=== PATIENT | female | born 2000 | race Two or more races ===

== ENCOUNTER 2023-03-21 06:46 | Day surgery (SDC) | payer OTHER ==
[2023-03-21] MEDS ORDERED: MONDOXYNE NL100 MG PO (14:39)
[2023-03-21] MEDS ORDERED: IBU600 MG PO (14:39)
== END 2023-03-21 21:20 | disposition home or self-care (01) ==
LOC: EDBD → CIR.AMB 06:46
PROVIDERS: ATTEND Obstetrics & Gynecology
DX: O02.1 Missed abortion (principal); Z20.822 Contact with and (suspected) exposure to COVID-19

== ENCOUNTER 2024-03-07 22:33 | Inpatient (IN) | payer OTHER ==
[~2024-03-07] VITALS: Ht 154.9 cm; Wt 69.4 kg
[~2024-03-07 22:33] MED LIST: IBU600 MG PO; MONDOXYNE NL100 MG PO
[2024-03-07] MEDS ORDERED: RINGERS SOLUTION,LACTATED 1,000 ML IV SCH (22:45)
[2024-03-07] MEDS ORDERED: PRENATAL TABLE1 EAC1 PO (22:51)
[2024-03-07 23:19] LABS: URINE APPEARANCE Cloudy; URINE BILIRRUBIN Negative (NEGATIVE); URINE BLOOD Large; URINE COLOR Yellow; URINE GLUCOSE Negative (NEGATIVE); URINE KETONE Negative (NEGATIVE); URINE LEUKOCYTE Trace; URINE NITRATE Positive
[2024-03-07 23:23] LABS: URINE BACTERIA 3337.6 uL (0.0-1933); URINE EPITHELIAL CELLS 18.7 uL (0.0-38.8); URINE RBC 1396.9 uL (0.0-20.8); URINE WBC 152.1 uL (0.0-23.2)
[2024-03-07 23:44] LABS: HEMOGLOBIN 10.9 g/dL (12.0-15.00); MEAN CELL VOLUME 92.5 fL (80.00-100.00); MEAN CORPUSCULAR HEMOGLOBIN 32.7 pg (27.00-32.0); MEAN CORPUSCULAR HGB CONC 35.3 g/dl (32.0-36.0); PLATELET COUNT 168 K/uL (150-450); RED BLOOD COUNT 3.35 M/uL (4.00-6.00); RED CELL DISTRIBUTION WIDTH 12.1 % (11.5-14.5)
[2024-03-07 23:45] LABS: URINE CAST 0.91 uL (0.0-1.40); URINE PROTEIN 300 (NEGATIVE)
[2024-03-07 23:58] LABS: BILIRUBIN TOTAL 0.55 mg/dL (0.3-1.2); CALCIUM 9.2 mg/dL (8.5-10.1); CREATININE SERUM 0.49 mg/dL (0.55-1.02); GFR 155.16; GLOBULINA 3.6 G/DL (2.4-3.5); POTASSIUM 3.63 mEq/L (3.5-5.1); TOTAL PROTEIN 6.6 gm/dL (6.4-8.2)
[2024-03-08] MEDS ORDERED: CEFTRIAXONE SODIUM 2,000 MG VIAL IV SCH ×2 (01:30→21:00)
[2024-03-08] MEDS ORDERED: ACETAMINOPHEN 500 MG GEL..CAP PO PRN (01:30)
[2024-03-08] MEDS ORDERED: CEFTRIAXONE SODIUM 1,000 MG in DEXTROSE 5 % IN WATER 100 ML IV SCH (11:56)
[2024-03-08] MEDS ORDERED: CEFTRIAXONE SODIUM 1,000 MG VIAL IV SCH (13:00)
[2024-03-12] MEDS ORDERED: CEFUROXIME500 MG PO (09:05)
== END 2024-03-12 11:26 | disposition home or self-care (01) | DRG 833 ==
LOC: OBS/DEL 22:33 → OB/GYN 03-08 11:02 → LDR 03-08 11:02 → OB/GYN 03-08 15:01
PROVIDERS: ADMIT Obstetrics & Gynecology; ATTEND Obstetrics & Gynecology
PROC: 4A1HXCZ Monitoring of Products of Conception, Cardiac Rate, External Approach (ICD-10-PCS; principal; 2024-03-08)
DX: O23.03 Infections of kidney in pregnancy, third trimester (principal); Z3A.30 30 weeks gestation of pregnancy; Z20.822 Contact with and (suspected) exposure to COVID-19

== ENCOUNTER 2024-03-25 09:21 | Outpatient (CLI) | payer OTHER ==
[~2024-03-25 09:21] MED LIST changes: +CEFUROXIME500 MG PO; +PRENATAL TABLE1 EAC1 PO
== END 2024-03-25 09:22 | disposition home or self-care (01) ==
LOC: PRENATAL 09:21
PROVIDERS: ATTEND Obstetrics & Gynecology Maternal & Fetal Medicine
DX: O26.843 Uterine size-date discrepancy, third trimester (principal); O36.8130 Decreased fetal movements, third trimester, not applicable or unspecified; Z3A.32 32 weeks gestation of pregnancy

== ENCOUNTER 2024-04-15 14:04 | Outpatient (CLI) | payer OTHER | END 2024-04-15 14:05 | disposition home or self-care (01) | LOC: PRENATAL 14:04 | PROVIDERS: ATTEND Obstetrics & Gynecology Maternal & Fetal Medicine | DX: O26.849 Uterine size-date discrepancy, unspecified trimester (principal); O36.8199 Decreased fetal movements, unspecified trimester, other fetus; Z3A.35 35 weeks gestation of pregnancy ==

== ENCOUNTER 2024-04-20 12:27 | Inpatient (IN) | payer OTHER ==
[~2024-04-20] VITALS: Ht 154.9 cm; Wt 2.3 kg
[2024-04-20 11:34] VITALS: BP 102/60
[2024-04-20 12:37] VITALS: BP 106/70
[2024-04-20] MEDS ORDERED: BETAMETHASONE ACETATE,SOD PHOS 30 MG/5 ML ML ONE (13:12)
[2024-04-20] MEDS ORDERED: BETAMETHASONE ACETATE,SOD PHOS 30 MG/5 ML ML IM SCH (13:38)
[2024-04-20 13:42] LABS: PH,URINE 6.5 (5.0-8.0); URINE APPEARANCE Clear; URINE BACTERIA 2569.1 uL (0.0-1933); URINE BILIRRUBIN Negative (NEGATIVE); URINE BLOOD Trace; URINE COLOR Yellow; URINE EPITHELIAL CELLS 45.2 uL (0.0-38.8); URINE GLUCOSE Negative (NEGATIVE); URINE KETONE Negative (NEGATIVE); URINE LEUKOCYTE Small; URINE NITRATE Negative; URINE PROTEIN Trace (NEGATIVE); URINE WBC 75.5 uL (0.0-23.2)
[2024-04-20 13:45] LABS: HEMATOCRIT 34.8 % (36.0-45.00); HEMOGLOBIN 11.8 g/dL (12.0-15.00); MEAN CELL VOLUME 91.2 fL (80.00-100.00); MEAN CORPUSCULAR HEMOGLOBIN 30.8 pg (27.00-32.0); MEAN CORPUSCULAR HGB CONC 33.8 g/dl (32.0-36.0); PLATELET COUNT 172 K/uL (150-450); RED BLOOD COUNT 3.82 M/uL (4.00-6.00); RED CELL DISTRIBUTION WIDTH 13.2 % (11.5-14.5)
[2024-04-20] MEDS ORDERED: RINGERS SOLUTION,LACTATED 1,000 ML IV SCH (13:45)
[2024-04-20 14:00] LABS: URINE CAST 0.76 uL (0.0-1.40)
[2024-04-20 14:05] LABS: INR 0.94; PARTIAL THROMBOPLASTIN TIME 29.5 SECONDS (22.0-34.0); PROTHROMBIN TIME 10.3 SECONDS (9.0-11.5)
[2024-04-20 14:50] LABS: ALBUMIN 2.9 gm/dL (3.4-5.0); BILIRUBIN TOTAL 0.78 mg/dL (0.3-1.2); CALCIUM 9.2 mg/dL (8.5-10.1); CREATININE SERUM 0.43 mg/dL (0.55-1.02); GFR 180.4; GLOBULINA 3.9 G/DL (2.4-3.5); POTASSIUM 3.92 mEq/L (3.5-5.1); TOTAL PROTEIN 6.8 gm/dL (6.4-8.2)
[2024-04-20 16:07] VITALS: BP 116/73
[2024-04-20 19:40] VITALS: BP 121/69
[2024-04-20 23:34] VITALS: BP 102/60
[2024-04-21 03:08] VITALS: BP 122/63
[2024-04-21 06:32] VITALS: BP 101/59; O2SAT 100
[2024-04-21 13:00] VITALS: BP 119/76
[2024-04-21 19:14] VITALS: BP 113/68
[2024-04-22] VITALS: BP 124/69
[2024-04-22 08:00] VITALS: BP 121/68
[2024-04-22 18:01] VITALS: BP 109/70
[2024-04-22 23:22] VITALS: BP 121/72
[2024-04-23 03:25] VITALS: BP 112/55
[2024-04-23] MEDS ORDERED: MISOPROSTOL 25 MCG TABLET ONE (06:32)
[2024-04-23] MEDS ORDERED: MISOPROSTOL 25 MCG TABLET VAG ONE (06:45)
[2024-04-23 07:26] VITALS: BP 108/55
[2024-04-23] MEDS ORDERED: OXYTOCIN 500 ML IV SCH (10:00)
[2024-04-23 11:22] VITALS: BP 123/67
[2024-04-23 14:33] VITALS: BP 130/82
[2024-04-23] MEDS ORDERED: MORPHINE SULFATE 4 MG/ML CARTRIDGE IV NR (14:51)
[2024-04-23 15:33] VITALS: BP 121/72
[2024-04-23] MEDS ORDERED: CEFAZOLIN SODIUM 1,000 MG VIAL ONE (19:02)
[2024-04-23] MEDS ORDERED: CEFAZOLIN SODIUM 1,000 MG VIAL IV SCH (19:15)
[2024-04-23] MEDS ORDERED: MEPERIDINE HCL/PF 50 MG/ML VIAL IM PRN (21:45)
[2024-04-23] MEDS ORDERED: OXYTOCIN 1,000 ML IV SCH (21:45)
[2024-04-23] MEDS ORDERED: ERYTHROMYCIN BASE OPHT 1GM EACH TUBE OP ONE (22:00)
[2024-04-23] MEDS ORDERED: PROMETHAZINE HCL 50 MG/ML AMPUL IM PRN (22:00)
[2024-04-23] MEDS ORDERED: OXYTOCIN 20 UNITS/1000ML 0.45% PIGGYBAG IV ONE (22:00)
[2024-04-24] MEDS ORDERED: MORPHINE SULFATE 4 MG/ML VIAL IV ONE (00:05)
[2024-04-24] MEDS ORDERED: MEPERIDINE HCL 50 MG/ML AMPUL IV ONE (01:25)
[2024-04-24 04:00] VITALS: BP 123/78
[2024-04-24 05:36] LABS: HEMATOCRIT 31.9 % (36.0-45.00); MEAN CELL VOLUME 89.7 fL (80.00-100.00); MEAN CORPUSCULAR HEMOGLOBIN 30.8 pg (27.00-32.0); MEAN CORPUSCULAR HGB CONC 34.4 g/dl (32.0-36.0); PLATELET COUNT 162 K/uL (150-450); RED BLOOD COUNT 3.56 M/uL (4.00-6.00); RED CELL DISTRIBUTION WIDTH 13.1 % (11.5-14.5)
[2024-04-24] MEDS ORDERED: ACETAMINOPHEN WITH CODEINE 1 UDTAB TABLET PO PRN (08:45)
[2024-04-24 08:47] VITALS: BP 114/80
[2024-04-24] MEDS ORDERED: SIMETHICONE 125 MG CAPSULE PO SCH (09:00)
[2024-04-24] MEDS ORDERED: NAPROXEN 500 MG TABLET PO SCH (09:00)
[2024-04-24 13:00] VITALS: BP 119/70
[2024-04-24 17:25] VITALS: BP 105/72
[2024-04-24 23:50] VITALS: BP 109/66
[2024-04-25 09:13] VITALS: BP 115/73
[2024-04-25 16:00] VITALS: BP 113/77
[2024-04-25 20:00] VITALS: BP 112/74
[2024-04-26 00:17] VITALS: BP 100/64
[2024-04-26 04:30] VITALS: BP 104/70
[2024-04-26 08:00] VITALS: BP 111/79
[2024-04-26] MEDS ORDERED: NAPR500T14 PO (11:41)
[2024-04-26] MEDS ORDERED: Tylenol #3 PO (11:41)
== END 2024-04-26 12:01 | disposition home or self-care (01) | DRG 786 ==
LOC: OB/GYN 12:27 → LDR 12:27 → OB/GYN 04-21 08:51
PROVIDERS: Obstetrics & Gynecology; ADMIT Obstetrics & Gynecology; ATTEND Obstetrics & Gynecology
PROC: 4A1HXCZ Monitoring of Products of Conception, Cardiac Rate, External Approach (ICD-10-PCS; 2024-04-20)
PROC: BY4FZZZ Ultrasonography of Third Trimester, Single Fetus (ICD-10-PCS; 2024-04-21)
PROC: 3E033VJ Introduction of Other Hormone into Peripheral Vein, Percutaneous Approach (ICD-10-PCS; 2024-04-23)
PROC: 3E0P7VZ Introduction of Hormone into Female Reproductive, Via Natural or Artificial Opening (ICD-10-PCS; 2024-04-23)
PROC: 10D00Z1 Extraction of Products of Conception, Low, Open Approach (ICD-10-PCS; principal; 2024-04-23 20:15)
DX: O36.8130 Decreased fetal movements, third trimester, not applicable or unspecified (principal); O60.14X0 Preterm labor third trimester with preterm delivery third trimester, not applicable or unspecified; O36.8330 Maternal care for abnormalities of the fetal heart rate or rhythm, third trimester, not applicable or unspecified; O26.843 Uterine size-date discrepancy, third trimester; O36.5930 Maternal care for other known or suspected poor fetal growth, third trimester, not applicable or unspecified; Z3A.36 36 weeks gestation of pregnancy; Z37.0 Single live birth; Z20.822 Contact with and (suspected) exposure to COVID-19; Z3A.37 37 weeks gestation of pregnancy